=== PATIENT | female | born 1990 | race Caucasian/White ===

== ENCOUNTER → 2017-08-22 | Emergency (ER) | payer OTHER ==
[~2017-08-22] VITALS: Ht 180.3 cm; Wt 126.5 kg
[~2017-08-22] MED LIST: CEPHALEXIN500 MG PO; DOXYCYCLINE HY100 MG PO; ESSENTIAL DAIL1 EACH PO; GUIATUSS AC SY120 ML PO; IBUPROFEN800 MG PO; NASAL & SINUS D30 MG PO; NORCO 5-325 TA1 EACH PO
== END ==
LOC: ED 18:33
PROC: 2W3JX1Z Immobilization of Right Finger using Splint (ICD-10-PCS; principal; 2017-08-22)
DX: S61.302A Unspecified open wound of right middle finger with damage to nail, initial encounter (principal); Z88.2 Allergy status to sulfonamides; W23.0XXA Caught, crushed, jammed, or pinched between moving objects, initial encounter
CPT/HCPCS: 29130; 73140; 99283

== ENCOUNTER 2020-08-23 08:44 | Day surgery (SDC) | payer BC ==
[~2020-08-23] VITALS: Ht 180.3 cm; Wt 131.8 kg
--- NOTE | ~2020-08-23 | OR ---
[address] [address] Draft DATE OF OPERATION: 08/23/2020 SURGEON: Clari Voss DO PREOPERATIVE DIAGNOSES: 1. Abnormal uterine bleeding. 2. Obesity. POSTOPERATIVE DIAGNOSES: 1. Abnormal uterine bleeding. 2. Obesity. PROCEDURES PERFORMED: 1. Total laparoscopic hysterectomy. 2. Bilateral salpingectomy. 3. Cystoscopy. 4. Removal of Nexplanon. TENSIONING MACHINE OPERATOR: Tresa Fierro D.O. ANESTHESIA: General. ESTIMATED BLOOD LOSS: 20 mL. SPECIMENS: 1. Uterus and cervix. 2. Bilateral fallopian tubes. IMPLANTS: Nexplanon was removed. FINDINGS: Normal uterus and ovaries. Fallopian tube, status post Falope ring tubal ligation. No significant intraabdominal adhesions despite her history of splenic laceration. COMPLICATIONS: None. PATIENT NAME: SUDHIR COYLE OPERATIVE REPORT DATE OF : [birth year] REPORT #: [id number] PHYSICIAN: CLARI VOSS DO PCP: CLAYTON HORVATH MD REPORT IS CONFIDENTIAL AND NOT TO BE RELEASED WITHOUT AUTHORIZATION [facility] [address] [place] [id number] Draft INDICATIONS: Ms. Coyle is a pleasant 29-year-old, G1, P1 female, who presented with heavy, irregular bleeding that has failed long-acting reversible contraception. Ultrasound was normal. The patient status post tubal ligation and desires definitive treatment with hysterectomy. Risks, benefits, and alternatives were discussed in detail with the patient. The patient understands and wished to proceed with the procedure. DESCRIPTION OF PROCEDURE: The patient was taken to the operating room, where a time-out was performed to confirm correct patient and correct procedure. The patient was prepped and draped in the dorsal lithotomy position with feet in Yellofin stirrups. ICPs were on running. The patient received Ancef 3 g as well as heparin preoperatively. Corona catheter was inserted. Weighted speculum was placed in the vagina and the anterior lip of the cervix was grasped with an Allis clamp. The cervix was gently dilated using Hegar dilators. A CSDNare uterine manipulator was placed without difficulty. The surgeon's gloves were changed. Attention was turned to the abdomen. Given the patient's history of splenic laceration, decision was made to proceed with Ruiz open entry. Infraumbilical tissue was infiltrated with 0.25% Marcaine with epinephrine and a curvilinear incision was made several centimeters below the umbilicus. The patient has a significant amount of abdominal obesity. The fascia was grasped with hemostats, elevated and entered sharply. Stay sutures of 0-Vicryl were placed in the anterior and posterior aspect of the fascial incision. The peritoneum was then entered bluntly and a bariatric Ruiz was placed without difficulty. Pneumoperitoneum was established and survey of the abdomen and pelvis was performed. Normal liver and diaphragm were noted. No significant intraabdominal adhesions were noted. Attention was turned to the pelvis. Normal uterus and ovaries were noted. The fallopian tubes were status post Falope ring tubal ligation. A 5 mm assist port was placed in the left lower quadrant under direct visualization without complication. An 8 mm expanding port was placed in the right lower quadrant under direct visualization without complication. Attention was then turned to the hysterectomy. The left fallopian tube was grasped with the fimbriated end, elevated and dissected using the ligature device. The fallopian tube was sent to pathology for further evaluation. The left uteroovarian ligament was fulgurated and divided with excellent hemostasis. The left round ligament was then fulgurated and divided with hemostasis. The leaves of the broad ligament were divided and the anterior leaf was dissected down to the angle of the vaginal cup. The bladder was then pushed well below the vaginal cup. The posterior leaf of the broad ligament was then dissected down to the angle of the uterosacral ligament. It was then brought around the posterior edge of the vaginal cuff to the right uterosacral ligament. The uterine vessels were identified, fulgurated and divided with excellent hemostasis. This process was repeated on the right side with dissection of the fallopian tube along the mesosalpinx, fulguration, division of the utero-ovarian ligament and the round ligament. The leaves PATIENT NAME: SUDHIR COYLE OPERATIVE REPORT DATE OF : [birth year] REPORT #: [id number] PHYSICIAN: CLARI VOSS DO PCP: CLAYTON HORVATH MD REPORT IS CONFIDENTIAL AND NOT TO BE RELEASED WITHOUT AUTHORIZATION [facility] [address] [place], [place] [address] Draft of the broad ligament were then divided and dissection was completed. The uterine vessels were fulgurated and divided with excellent hemostasis. The Sonicision device was then used to perform colpotomy starting at 6 o'clock and caring around circumferentially along the green groove of the CSDNare uterine manipulator. The uterus and cervix were then delivered through the vagina and sent to pathology for further evaluation. The vagina was stuffed with a wet lap and a glove to maintain the pneumoperitoneum. The pelvis was irrigated and found to be hemostatic. Hysterotomy was then repaired using a V-Loc suture with an Endostitch device with careful attention to incorporate the uterosacral ligaments as well as the vaginal epithelium with each bite. Excellent hemostasis closure and apical support were noted. The pelvis was irrigated and again found to be hemostatic. Pneumoperitoneum was reduced and the trocars were removed. Infraumbilical fascia was repaired using 0-Vicryl in a running nonlocked manner with some difficulty due to patient's obesity. The stay sutures were then also tied to reinforce fascial repair. Infraumbilical subcu was repaired, it was closed using 2-0 Vicryl to decrease that potential space. Skin incisions were then repaired using 4-0 Monocryl with excellent hemostasis and cosmesis. Attention was turned to cystoscopy. Corona catheter was removed and a 70-degree cystoscope was placed under direct visualization through the urethra and into the bladder. Normal urethra and bladder were noted. Bilateral ureteral jets were appreciated. The bladder was drained. Corona catheter was reinserted. Attention was then turned to Nexplanon removal. The left upper arm was evaluated and Nexplanon noted to be just subcuticular with excellent placement. The left arm was prepped and draped. A 3 mL of 2% Marcaine with epinephrine was injected just below the annette. A 3 mm incision was made and the Nexplanon was grasped with hemostats and easily delivered. It was measured and confirmed to be 4 cm in length. The incision was then repaired with Steri-Strips and the arm was wrapped. The patient was taken to the PACU in good and stable condition. Sponge, needle, and instrument count was correct x2 at the end of the procedure. Dr. Fierro was present and participated in all portions of procedure. DO ANKUR Thacker/THIERNO /[id number] PATIENT NAME: SUDHIR COYLE OPERATIVE REPORT DATE OF : [birth year] REPORT #: [id number] PHYSICIAN: CLARI VOSS DO PCP: CLAYTON HORVATH MD REPORT IS CONFIDENTIAL AND NOT TO BE RELEASED WITHOUT AUTHORIZATION [address] [facility] [place] [place] [address] Draft Copies: ~ PATIENT NAME: SUDHIR COYLE OPERATIVE REPORT DATE OF : [birth year] REPORT #: [id number] PHYSICIAN: CLARI VOSS DO PCP: CLAYTON HORVATH MD REPORT IS CONFIDENTIAL AND NOT TO BE RELEASED WITHOUT AUTHORIZATION
--- NOTE | 2020-08-23 15:14 | NUR ---
08/23/20 1514 Kim Menjivar 1500 PT ARRIVED IN PACU NON RESPONSIVE TO NOXIOUS STIMULI WITH OPA IN PLACE. CHIN LIFT HELD BY RN. 1510 PT REACTIVE. OPA REMOVED. 1515 SLEEPY. NO C/O'S.
--- NOTE | 2020-08-23 15:55 | NUR ---
PATIENT RETURNS WITH COOL CLOTH ON HER HEAD. SHE DENIES NAUSEA. COOL AIR PLACED ON PATIENT PER HER REQUEST. SPOUSE AT THE BEDSIDE. ICED WATER AND JELLO GIVEN. 9 ML FLUID DRAWN FROM ZEPEDA CATHETER BALLOON AND ZEPEDA IS DC WNL. PATIENT TOLERATES THIS WELL. 200 ML DARK YELLOW URINE IS NOTED TO ZEPEDA OVERNIGHT BAG. PATIENT ARRIVES ON 4L VIA NC. OXYGEN IS DISCONTINUED ON PATIENT'S ARRIVAL - PRIOR TO VITAL SIGNS BEING TAKEN. CONTINUOUS PULSE OXIMETER IS PLACED. PATIENT EDUCATION COMPLETE REGARDING LOW OXYGEN ALARM. PATIENT AND HER SPOUSE VERBALIZE UNDERSTANDING. PATIENT'S OXYGEN SATURATION REMAINS 93% AND ABOVE WHILE I AM PRESENT IN THE ROOM. CALL LIGHT IS WITHIN REACH.
--- NOTE | 2020-08-23 16:15 | NUR ---
CONTINUOUS PULSE OXIMETER HEARD FROM NURSE'S STATION. OXYGEN SATURATION IS 87% ON RA. OXYGEN ON 2L VIA NC.
[2020-08-23] MEDS ORDERED: MOTRIN IB200 MG PO (16:31)
[2020-08-23] MEDS ORDERED: HYDROCODON-ACE1 EA10 PO (16:31)
--- NOTE | 2020-08-23 17:01 | NUR ---
OXYGEN TURNED OFF AT THIS TIME. CONTINUOUS PULSE OXIMETER REMAINS IN PLACE.
--- NOTE | 2020-08-23 17:06 | NUR ---
PATIENT SITS UP AND SUDDENLY STARTS WRETCHING AFTER ATTEMPTING TO TAKE A BITE OF JELLO. PATIENT REPORTS THE NAUSEA WAS SUDDEN AND PASSED AFTER DRY HEAVING. PATIENT IS EATING ICE CHIPS. EDUCATION COMPLETE REGARDING EATING JELLO AND DRINKING WATER. PATIENT AND HER VERBALIZE UNDERSTANDING.
--- NOTE | 2020-08-23 17:41 | NUR ---
LE 1730: PATIENT IS UP TO THE BATHROOM, AMBULATORY. SHE DOES WELL AND DENIES DIZZINESS. SHE VOIDS 100 ML DARK, YELLOW URINE. CALL TO DR PARRA AND HE OKAYS PATIENT'S DISCHARGE. DISCHARGE INSTRUCTIONS ARE GIVEN AND PATIENT AND SPOUSE VERBALIZE UNDERSTANDING. PATIENT IS GETTING DRESSED IN THE PRESENCE OF HER SPOUSE AND SHE TRANSFERS HERSELF TO THE WHEELCHAIR AND THEN TO PERSONAL VEHICLE AND TOLERATES THAT WELL.
--- NOTE | 2020-08-25 16:59 | PATH ---
[facility] [address] [place], [place] [address] Signed SPECIMEN(S): A TUBES, CERVIX, AND UTERUS SPECIMEN SOURCE: A. TUBES, CERVIX, AND UTERUS CLINICAL HISTORY: TLH, BS, cysto. Abnormal uterine bleeding. FINAL PATHOLOGIC DIAGNOSIS: Uterus, cervix, and bilateral fallopian tubes, hysterectomy and bilateral salpingectomy: - Cervix: No histopathologic abnormality. - Endometrium: Weakly proliferative endometrium. - Myometrium: No histopathologic abnormality. - Serosa: No histopathologic abnormality. - Fallopian tubes: Plastic surgical clips present, suggestive of prior ligation. - No evidence of malignancy. MICROSCOPIC EXAMINATION: Histologic sections of all submitted blocks are examined by light microscopy. These findings, together with the gross examination, support the pathologic diagnosis. GROSS DESCRIPTION: The specimen, labeled "CW," and designated on the requisition "bilateral fallopian tubes, cervix and uterus," is received in formalin and consists of a uterus (143 gram, 7.0 cm superior to inferior, 6.6 cm left to right, 4.9 cm anterior to posterior), attached cervix (2.7 cm in length x 3.5 cm in diameter) with pink-urrutia, smooth cervical mucosa and patent slit-shaped os (1.9 x 0.7 cm), and two detached and undesignated fimbriated fallopian tube segments (5.6 cm in length and ranging in diameter from 0.6-1.1 cm, and 6.3 cm in length and ranging in diameter from 0.6-1.0 cm). One fallopian tube segment is arbitrarily inked blue. Both fallopian tube segments are brown-urrutia and contain white-urrutia, cylindrical pieces of plastic (0.4 cm in diameter x 0.3 cm in thickness) and are sectioned to reveal a grossly unremarkable cut surface. The fimbriae are entirely submitted. The uterine serosa is pink-urrutia and smooth. The specimen is opened to reveal a PATIENT NAME: SUDHIR SELBY PATHOLOGY DATE OF : [birth year] REPORT #: [id number] PHYSICIAN: ANGEL PATHOLOGY PCP: CLAYTON HORVATH MD REPORT IS CONFIDENTIAL AND NOT TO BE RELEASED WITHOUT AUTHORIZATION [facility] [address] [place], [place] [address] Signed pink-urrutia to hemorrhagic and slightly roughened endocervix (endocervical canal: 3.0 cm in length and ranging in diameter from 1.0 x 1.7 cm), and endometrial cavity (5.7 cm superior to inferior x 3.4 cm cornu to cornu) with hemorrhagic endometrial lining that measures up to 0.2 cm in thickness. The myometrium is pink-urrutia and markedly trabeculated with no masses identified. Wastewater Treatment Operator sections are submitted as follows: Cassette Summary: (A1-A2) Fallopian tubes (A3) Cervix (A4) Endomyometrium AC (under the direct supervision of a pathologist) The Gross Description was prepared using a voice recognition system. The report was reviewed for accuracy; however, sound-alike word errors, addition and/or deletions may occur. If there is any question about this report, please contact Client Services. PERFORMING LABORATORY: The technical component was performed by [facility], [address] [place] [id number] (Category Analyst: Araseli Espinosa MD; CLIA# [id number]). Professional interpretation was performed by [facility], [facility], [address] [address] (CLIA# [id number]). Diagnostician: Rachna Yoon MD Pathologist Electronically Signed 08/25/2020 Copies: ~ PATIENT NAME: SUDHIR SELBY PATHOLOGY DATE OF : [birth year] REPORT #: [id number] PHYSICIAN: ANGEL WING PCP: CLAYTON HORVATH MD REPORT IS CONFIDENTIAL AND NOT TO BE RELEASED WITHOUT AUTHORIZATION
== END 2020-08-23 17:35 | disposition home or self-care (01) ==
LOC: OPS 08:44 → DS 08:44 → OPS 09:30 → DS 09:30 → OPS 10:30
PROVIDERS: ATTEND Obstetrics & Gynecology
PROC: 0UT94ZZ Resection of Uterus, Percutaneous Endoscopic Approach (ICD-10-PCS; principal; 2020-08-23 11:30)
PROC: 0UT74ZZ Resection of Bilateral Fallopian Tubes, Percutaneous Endoscopic Approach (ICD-10-PCS; 2020-08-23 11:30)
PROC: 0XP73YZ Removal of Other Device from Left Upper Extremity, Percutaneous Approach (ICD-10-PCS; 2020-08-23 11:30)
DX: N93.9 Abnormal uterine and vaginal bleeding, unspecified (principal); E66.9 Obesity, unspecified; Z68.41 Body mass index [BMI] 40.0-44.9, adult; Z88.1 Allergy status to other antibiotic agents
CPT/HCPCS: 00840; J0690; J1100; J1644; J1885; J2250; J2270; J2405; J2704; J2765; J3010; J7121

== ENCOUNTER 2020-09-07 01:48 | Day surgery (SDC) | payer BC ==
[~2020-09-07] VITALS: Ht 180.3 cm; Wt 133.9 kg
--- NOTE | ~2020-09-07 | OR ---
[facility] [address] [place], [place] [address] Draft DATE OF OPERATION: 09/07/2020 SURGEON: Clari Voss DO PREOPERATIVE DIAGNOSES: 1. Acute postoperative vaginal bleeding. 2. Status post total laparoscopic hysterectomy with bilateral salpingectomy, postop day #14. 3. Obesity. POSTOPERATIVE DIAGNOSES: 1. Vaginal cuff disruption. 2. Acute postoperative vaginal bleeding, resolved. 3. Status post total laparoscopic hysterectomy with bilateral salpingectomy, postop day #14. 4. Obesity. PROCEDURES PERFORMED: 1. Vaginal cuff revision. 2. Cystoscopy. CERAMICS TECHNICIAN: Marisol Rodríguez MD. ANESTHESIA: General. ESTIMATED BLOOD LOSS: 50 mL. FINDINGS: At the beginning of the case, moderate amount of clot on patient's chucks and bedding. Partially disrupted vaginal cuff with no evidence of intraabdominal bleeding or complete cuff dehiscence. Hemostatic after cuff revision. Normal cystoscopy with normal urethra, bladder and bilateral ureteral jets. COMPLICATIONS: None. INDICATIONS: PATIENT NAME: SUDHIR COYLE OPERATIVE REPORT DATE OF : [birth year] REPORT #: [id number] PHYSICIAN: CLARI VOSS DO PCP: CLAYTON HORVATH MD REPORT IS CONFIDENTIAL AND NOT TO BE RELEASED WITHOUT AUTHORIZATION [facility] [address] [place], [place] [address] Draft Ms. Coyle is a very pleasant 29-year-old white female, who presented postoperative day 14 with acute vaginal bleeding. Patient reports that she did very well postoperatively with no complaints. No intercourse or vigorous physical activity. The patient awoke around midnight with a sensation of wetness and awoke to a pool of blood. She changed multiple pads soaked with clots and presented to the emergency department for further evaluation. In the ER, the patient was noted to have continued heavy vaginal bleeding and the vagina was gently packed. Dr. Rodríguez presented, evaluated the patient and prepared the patient for surgery. Risks, benefits, and alternatives were discussed in detail with the patient. The patient understands and wishes to proceed with the procedure. TECHNIQUE: The patient was taken to the operating room where a time-out was performed to confirm the correct patient and correct procedure. General anesthesia was adequately established. The patient was prepped and draped in the dorsal lithotomy position with her feet in Yellofin stirrups. ICPs were on and running. The patient received Ancef 3 g IV as well as heparin 5000 units subcu. A Corona catheter was inserted and exam under anesthesia was performed. The vaginal cuff was noted to be partially disrupted with a portion of the V-Loc suture noted emerging from the left vaginal apex. The top of the cuff was intact with gentle probing and no active bleeding was appreciated under anesthesia. Decision was made to proceed with primary cuff revision. The cords with cuff were grasped with long Allis clamps and suture was placed in the left corner. A suture of 0 Vicryl was then placed in the right corner of the vaginal apex and then the vagina was closed in a running nonlocked manner. A figure of eight was placed in the medial portion for one small area to help complete closure. The vagina was irrigated, found to be hemostatic. The Corona catheter was removed and a 30 degree cystoscope was placed in the urethral meatus and advanced under direct visualization into the bladder. The bladder was filled and normal bladder was noted with no puckering of the suture or other abnormalities noted. Bilateral ureteral jets were appreciated. The bladder was drained. Corona catheter was reinserted and the patient was taken to the PACU in good and stable condition. Sponge, needle and instrument counts were correct x2 at the end of the procedure. Dr. Rodríguez was present, participated in all portions of the procedure. Clari Voss DO JDW/MODL /[id number] PATIENT NAME: SUDHIR COYLE OPERATIVE REPORT DATE OF : [birth year] REPORT #: [id number] PHYSICIAN: CLAIR VOSS DO PCP: CLAYTON HORVATH MD REPORT IS CONFIDENTIAL AND NOT TO BE RELEASED WITHOUT AUTHORIZATION [facility] [address] [place] [address] [place] [address] Draft Copies: ~ PATIENT NAME: SUDHIR COYLE OPERATIVE REPORT DATE OF : [birth year] REPORT #: [id number] PHYSICIAN: CLARI VOSS DO PCP: CLAYTON HORVATH MD REPORT IS CONFIDENTIAL AND NOT TO BE RELEASED WITHOUT AUTHORIZATION
[~2020-09-07 01:48] MED LIST changes: +HYDROCODON-ACE1 EA10 PO; +MOTRIN IB200 MG PO
--- NOTE | 2020-09-07 04:54 | NUR ---
09/07/20 0454 Kacey Bansal PT ARRIVES TO PACU RESPONSIVE TO STIMULUS.
--- NOTE | 2020-09-07 04:59 | NUR ---
MD TO MEDICAL FLOOR, UPDATED RN ON pt PLAN OF CARE, MD TO PLACE ORDERS. MD IN pt ROOM TO SPEAK WITH pt'S .
--- NOTE | 2020-09-07 05:38 | NUR ---
pt ARRIVES TO MS FLOOR VIA STRETCHER, ABLE TO TRANSFER SELF TO HOSPITAL BED. DENIES PAIN, DENIES NAUSEA. OXYGEN 100% ON 2L NC, TITRATED TO RA, SPO2 WNL. pt DROWSY, ORIENTED. NO BLEEDING NOTED. VSS. ICE CHIPS PROVIDED. ORIENTATION TO ROOM PROVIDED. CALL LIGHT IN REACH. IN ROOM.
--- NOTE | 2020-09-07 06:35 | NUR ---
VITALS DONE. ZEPEDA EMPTIED. PT DENIES PAIN. EYES OPEN TO SOUND WHEN ENTERED ROOM, CLOSED WHILE STAFF IN ROOM. AT BEDSIDE.
--- NOTE | 2020-09-07 07:26 | NUR ---
REPORT RECIEVED FROM GRANTS ASSISTANT RNCLAUDIA.
--- NOTE | 2020-09-07 08:32 | NUR ---
MORNING ASSESSMENT DONE, PATIENT DENIES PAIN, ENDORSES 1/10 CRAMPING ABD PAIN. ZEPEDA CATHETER INTACT WITH CLEAR YELLOW URINE. NO DRAINAGE NOTED TO PAD UNDER PATIENT. SCD'S ARE ON, IVF INFUSING, IN ROOM WITH PATIENT.
--- NOTE | 2020-09-07 09:47 | NUR ---
VITALS AND I&OS CHARTED. ZEPEDA EMPTIED. IN ROOM, NO OTHER NEEDS AT THIS TIME
--- NOTE | 2020-09-07 10:15 | NUR ---
DR. PARRA IN TO SEE PATIENT, INDICATED THAT WE WOULD TAKE HER ZEPEDA CATHETER OUT, GET PATIENT UP WALKING, LOOK AT REPEAT LABS AT NOON.
--- NOTE | 2020-09-07 11:00 | NUR ---
REMOVED PT ZEPEDA, PT THEN GOT UP AND VOIDED 100 LIGHT PINK URINE. PT GETTING UNDERWEAR FROM THE CAR. SL. PT WANTS BREAK FROM THE SCD'S FOR AWHILE.
--- NOTE | 2020-09-07 11:01 | NUR ---
THIS RN INTO ROOM TO COMPLETE CASE MANAGEMENT ACCOMPANIED BY ZOHRA RN. PATIENT LAYING IN BED, AT BEDSIDE. PATIENT STATES SHE LIVES AT HOME WITH HER . PATIENT STATES THERE IS [address] LE[address]ING INTO THE HOME WITH HAND RAILS. PATIENT IS INDEPENDANT AND USES NO DME. PATIENT STATES THAT SHE HAS ATTEMPTED TO RECIEVE SERVICES FROM [employer], BUT DOES NOT QUALIFY DUE TO INCOME.
--- NOTE | 2020-09-07 11:27 | NUR ---
PATIENT IS UP TO CHAIR, SCD'S ARE OFF. PATIENT ENDORSES AMBULATING IN ROOM, DENIES NEEDS, HAS NO PAIN AT THIS TIME.
--- NOTE | 2020-09-07 12:53 | NUR ---
CHECKED ON PATIENT. NOTHING NEEDED AT THIS TIME. PATIENT ASKED IF URINE IS MEASURED.
--- NOTE | 2020-09-07 13:48 | NUR ---
PATIENT GIVEN D/C INSTRUCTIONS, RIGHT A/C IV REMOVED WITH CATHETER INTACT. PATIENT REFUSED TO HAVE DISCHARGE VITALS. PATIENT AMBULATED TO FRONT DOOR WITH .
== END 2020-09-07 14:00 | disposition home or self-care (01) ==
LOC: ED 01:48 → MS 01:49 → DS 05:17 → MS 05:20 → DS 14:00
PROVIDERS: Obstetrics & Gynecology; ATTEND Obstetrics & Gynecology
PROC: 0WQNXZZ Repair Female Perineum, External Approach (ICD-10-PCS; principal; 2020-09-07 04:17)
DX: T81.32XA Disruption of internal operation (surgical) wound, not elsewhere classified, initial encounter (principal); N99.820 Postprocedural hemorrhage of a genitourinary system organ or structure following a genitourinary system procedure; Y83.8 Other surgical procedures as the cause of abnormal reaction of the patient, or of later complication, without mention of misadventure at the time of the procedure; Z90.710 Acquired absence of both cervix and uterus; Z88.2 Allergy status to sulfonamides; E66.9 Obesity, unspecified
CPT/HCPCS: 00942; 36415; 80053; 85025; 85027; 86850; 86900; 86901; 96374; 96375; 99285-25; J0131; J0330; J0690; J1100; J1644; J2405; J2704; J2765; J3010; J3475; J7030; J7121

== ENCOUNTER 2024-06-28 15:36 | Emergency (ER) | payer BC ==
[2024-06-28 16:18] VITALS: BP 106/70
--- NOTE | 2024-06-30 14:58 | EKG ---
[facility] [address] [facility] [place], [place] [address] Signed Sinus tachycardia Septal infarct , age undetermined Possible Lateral infarct , age undetermined Possible Inferior infarct , age undetermined Abnormal ECG No previous ECGs available Confirmed by Jorge Man MD ([id number]) on 06/30/2024 2:57:42 PM Electronically Signed By: JORGE MAN MD 06/30/24 1458 PATIENT NAME: SUDHIR SELBY Electrocardiogram DATE OF : 88 PHYSICIAN: JORGE MAN MD REPORT #: [id number] REPORT IS CONFIDENTIAL AND NOT TO BE RELEASED WITHOUT AUTHORIZATION
== END 2024-06-28 16:18 | disposition home or self-care (01) ==
LOC: ED 15:36
DX: M75.22 Bicipital tendinitis, left shoulder (principal); Z88.2 Allergy status to sulfonamides
CPT/HCPCS: 93005; 93010; 99283